=== PATIENT | female | born 1970 | race Caucasian/White ===

== ENCOUNTER 2019-02-27 08:00 | Outpatient (CLI) | payer OTHER ==
[2015-03-08 06:08] VITALS: BMI 30.1
[~2019-02-27 08:00] MED LIST: ADIPEX-P37.5 M1 PO; KLONOPIN1 MG PO; PREDNISONE20 MG PO; VITAMIN E400 UNI2 PO; [UNRECOGNIZED DRUG - OTHER]
== END 2019-02-27 23:59 | disposition home or self-care (01) ==
LOC: D.MAMMO 08:00
PROVIDERS: ATTEND Family Medicine
DX: Z12.31 Encounter for screening mammogram for malignant neoplasm of breast (principal)

== ENCOUNTER 2020-07-25 16:15 | Outpatient (CLI) | payer OTHER ==
[2015-03-08 06:08] VITALS: BMI 30.1
== END 2020-07-25 23:59 | disposition home or self-care (01) ==
LOC: D.MAMMO 16:15
PROVIDERS: ATTEND Clinical Nurse Specialist Family Health
DX: Z12.31 Encounter for screening mammogram for malignant neoplasm of breast (principal)